=== PATIENT | male | born 1980 | race Caucasian/White ===

== ENCOUNTER 2018-07-27 19:56 | Emergency (ER) | payer BC ==
--- NOTE | 2018-07-27 20:02 | ER Report ---
History and Physical Time Seen By MD: 20:02 Hx. of Stated Complaint: pt was playing [employer], fell heard a pop in his right ankle. (RAISSA HURLEY) HPI/ROS CHIEF COMPLAINT: Right ankle pain HISTORY OF PRESENT ILLNESS: 38-year-old male patient presents to emergency room with complaint of right ankle pain. 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 Patient states is not able to bear weight. He states that his pain is very significant. He denies any numbness or tingling to the foot. He is able to wiggle his toes. Patient has not taken any medication for this. His states the patient did lose consciousness a couple of times in route to the hospital. Patient denies any head injury, nausea, vomiting. REVIEW OF SYSTEMS: Respiratory: No cough, no dyspnea. Cardiovascular: No chest pain, no palpitations. Gastrointestinal: No vomiting, no abdominal pain. Musculoskeletal: As noted above (RAISSA HURLEY) Allergies: Coded Allergies: No Known Drug Allergies (Unverified , 07/27/18) Home Meds Active Scripts Oxycodone Hcl/Acetaminophen (PERCOCET 5-325 MG TABLET) 1 Each Tablet, 1 EACH PO Q4-6H PRN for PAIN, #20 TAB Prov:RAISSA HURLEY 07/27/18 Past Medical/Surgical History Patient has a past medical history of asthma. Patient denies any surgical history. (RAISSA HURLEY) Reviewed Nurses Notes: Yes (RAISSA HURLEY) Hx Substance Use Disorder: No (RAISSA HURLEY) Constitutional Vital Sign - Last 24 Hours 07/27/18 07/27/18 07/27/18 07/27/18 19:57 19:58 20:00 20:11 Temp 97.7 Pulse 91 78 Resp 22 B/P (MAP) 87/55 (66) 87/59 102/67 (79) Pulse Ox 95 O2 Delivery Room Air 07/27/18 07/27/18 07/27/18 07/27/18 20:15 20:26 20:31 20:46 Pulse 73 73 73 Resp 8 B/P (MAP) 111/78 (89) Pulse Ox 96 96 97 9/207/27/18 07/27/18 07/27/18 21:01 21:16 21:31 21:33 Pulse 79 74 71 Resp 10 12 10 B/P (MAP) 100/70 (80) Pulse Ox 97 99 99 07/27/18 07/27/18 07/27/18 07/27/18 21:35 21:40 21:45 21:46 Pulse 77 Resp 12 B/P (MAP) 108/77 (87) 113/83 (93) 112/82 (92) Pulse Ox 98 07/27/18 07/27/18 07/27/18 07/27/18 21:50 21:55 22:00 22:01 Pulse 76 Resp 9 B/P (MAP) 125/83 (97) 115/75 (88) 122/90 (101) Pulse Ox 99 07/27/18 07/27/18 07/27/18 22:05 22:10 22:15 B/P (MAP) 126/89 (101) 125/80 (95) 117/82 (94) Intake and Output 07/27/18 07/27/18 07/28/18 14:59 22:59 06:59 Intake Total 1000 ml Balance 1000 ml (SOLA JACK DO) Physical Exam General Appearance: The patient is alert, has no immediate need for airway protection and no current signs of toxicity. Respiratory: Chest is non tender, lungs are clear to auscultation. Cardiac: regular rate and rhythm Gastrointestinal: Abdomen is soft and non tender, no masses, bowel sounds normal. Musculoskeletal: Neck: Neck is supple and non tender. Extremities have full range of motion and are non tender. The right foot is twisted to the right. Patient has good sensation, he is able to wiggle his toes, he has brisk capillary refill. Skin: No rashes or lesions. DIFFERENTIAL DIAGNOSIS: After history and physical exam differential diagnosis was considered for trimalleolar fracture, ankle dislocation, tib-fib fracture. (RAISSA HURLEY) Medical Decision Making EKG/Imaging Imaging 3 views right ankle INDICATION: Fracture. Reduction. COMPARISON: Images from earlier in the evening are reviewed. FINDINGS: 3 views of the right ankle are obtained. A fiberglass splint has been placed. Trimalleolar fracture pattern is again seen at the right ankle. Alignment is improved at all the fracture sites. There is now appropriate alignment at the tibiotalar joint with an intact mortise. Soft tissue swelling noted. There is a heel spur. IMPRESSION: 1. Trimalleolar fracture pattern at the right ankle with improved alignment at the fracture sites and with near anatomic alignment now seen at the tibiotalar joint. 2. Fiberglass splint. Report Dictated By: Maged Tucker at 07/27/2018 10:10 PM Report E-Signed By: Maged Tucker at 07/27/2018 10:12 PM Examination: Right tibia-fibula 2 views EXAMINATION: Right ankle 2 views HISTORY: Pain. Deformity. FINDINGS: 2 views of the right tibia-fibula and 2 views of the right ankle are obtained. There are acute fractures involving the distal portions of the tibia and the fibula. Specifically, there is a markedly comminuted distal fibular fracture with multiple fracture fragments which are displaced posteriorly and laterally. There is a transverse fracture through the medial malleolus at the level of the tibial plafond and there is a posterior malleolus fracture of the distal tibia. The posterior malleolus fracture is distracted posteriorly and superiorly. There is abnormal alignment at the tibiotalar joint. There is posterior subluxation of the talus with respect to the tibial plafond. Talus and tibial plafond appear somewhat impacted at the level of the posterior malleolus fracture. There is mild widening of the medial ankle mortise. Soft tissue swelling is present about the ankle. There is a small heel spur. There are Achilles insertional ossifications. IMPRESSION: 1. Comminuted trimalleolar fracture pattern about the right ankle with soft tissue edema. 2. Posterior subluxation of the talar dome with respect to the tibial plafond. Report Dictated By: Maged Tucker at 07/27/2018 10:05 PM Report E-Signed By: Maged Tucker at 07/27/2018 10:09 PM Examination: Right tibia-fibula 2 views EXAMINATION: Right ankle 2 views HISTORY: Pain. Deformity. FINDINGS: 2 views of the right tibia-fibula and 2 views of the right ankle are obtained. There are acute fractures involving the distal portions of the tibia and the fibula. Specifically, there is a markedly comminuted distal fibular fracture with multiple fracture fragments which are displaced posteriorly and laterally. There is a transverse fracture through the medial malleolus at the level of the tibial plafond and there is a posterior malleolus fracture of the distal tibia. The posterior malleolus fracture is distracted posteriorly and superiorly. There is abnormal alignment at the tibiotalar joint. There is posterior subluxation of the talus with respect to the tibial plafond. Talus and tibial plafond appear somewhat impacted at the level of the posterior malleolus fracture. There is mild widening of the medial ankle mortise. Soft tissue swelling is present about the ankle. There is a small heel spur. There are Achilles insertional ossifications. IMPRESSION: 1. Comminuted trimalleolar fracture pattern about the right ankle with soft tissue edema. 2. Posterior subluxation of the talar dome with respect to the tibial plafond. Report Dictated By: Maged Tucker at 07/27/2018 10:05 PM Report E-Signed By: Maged Tucker at 07/27/2018 10:09 PM (RAISSA HURLEY) ED Course/Re-evaluation ED Course Patient admitted to an exam room, history and physical were obtained. Differential diagnoses were considered. On examination patient has obvious deformity of the right ankle with the foot pointing lateral. And x-rays done of the right ankle and tib-fib. He does have a trimalleolar fracture. There are no other fractures of the tibia the fibula. The patient agreed to conscious sedation and was sedated while the ankle was reduced as described below. Patient tolerated procedure well. Repeat x-ray showed significant improvement in the alignment of the ankle. Patient states his pain is improved. We did hold the patient for an hour after his reduction. Patient was then discharged home. He was given crutches and informed to follow-up with [facility]. He states that he has had some interactions with Dr. Peterson and would like to follow-up with him. Patient was given information for [facility]. They're to call on Saturday to make an appointment. Patient and his verbalized understanding and agreement. We will give him a prescription of Percocet to help with pain in the meantime. Procedure: Dislocation reduction. The ankle was reduced in the usual fashion without complications. Post reduction the patient's neurovascular exam is normal. Post reduction x-ray demonstrates reduction of the joint to the anatomic position. The procedure was performed by myself. Procedure: Splint placement. A posterior and stirrup splint was applied. After application of the splint I returned and re-examined the patient. The splint was adequately immobilizing the joint and distal to the splint the patient's circulation and sensation was intact. Decision to Disposition Date: Jul 27, 2018 Decision to Disposition Time: 21:56 (RAISSA HURLEY) ED Course Procedure: Procedural sedation. A pre-sedation evaluation was completed on the patient at 2119. Patient is an appropriate candidate for procedural sedation. The risks of the sedation were discussed with the patient. A time out was completed at 2126. The patient was reevaluated immediately prior to initiation of sedation. The patient was sedated with propofol 150 mg IV. The patient was monitored with continuous pulse oximetry and potline monitor. There were no complications and no significant hyp oxemia. I remained at the bedside for the sedation. The total time I spent in the procedural sedation was 20 minutes. Post sedation evaluation: Patient was alert and cooperative, hemodynamically stable with appropriate respiratory status, temperature and pain control without ongoing nausea and vomiting. Decision to Disposition Date: Jul 27, 2018 Decision to Disposition Time: 22:35 (SOLA JACK DO) Depart Departure Latest Vital Signs Vital Signs Date Time Temp Pulse Resp B/P (MAP) Pulse Ox O2 Delivery O2 Flow Rate FiO2 07/27/18 22:15 117/82 (94) 07/27/18 22:01 76 9 99 07/27/18 19:58 97.7 Room Air (SOLA JACK DO) Impression: Primary Impression: Trimalleolar fracture of ankle, closed Condition: Improved Disposition: HOME OR SELF-CARE Referrals: SHERMAN OSBORNE MD New Scripts Oxycodone Hcl/Acetaminophen (PERCOCET 5-325 MG TABLET) 1 Each Tablet 1 EACH PO Q4-6H PRN for PAIN, #20 TAB Prov: RAISSA HURLEY 07/27/18 Patient Instructions: Ankle Fracture (ED) Additional Instructions: Limit activity by pain. Ice the ankle through the splint; 2-3 times a day for 20-30 minutes. If the splint is feeling too tight you may loosen the it[place] wrap and rewrap it. Follow up with [facility], call Saturday to make an appointment. Keep the splint dry, wrap it with a bag and tape to keep the water out. Return to the ER with uncontrollable pain or numbness to the foot. You may take Ibuprofen as needed for pain in addition to the pain medication. Don't take any additional Tylenol while on the pain medication. Problem Qualifiers Primary Impression: Trimalleolar fracture of ankle, closed Encounter type: initial encounter Laterality: right Qualified Codes: S82.851A - Displaced trimalleolar fracture of right lower leg, initial encounter for closed fracture RAISSA HURLEY Jul 27, 2018 20:02 SOLA JACK DO Jul 27, 2018 20:16
[2018-07-27] MEDS ORDERED: MORPHINE 4 MG/ML SDV IVP ONE ×2 (20:05→20:35)
[2018-07-27] MEDS ORDERED: PROPOFOL EMUL 10MG/ML 20 ML VL IVP ONE (20:05)
[2018-07-27] MEDS ORDERED: NS(*) 0.9% 1000 ML BAG 1,000 ML IV ONE (21:15)
[2018-07-27] MEDS ORDERED: OXYC-865 PO (21:46)
[2018-07-27] MEDS ORDERED: oxyCODONE/ACETAMIN 5/325MG TH 2 TAB/BOTTLE PO ONE (22:00)
--- NOTE | 2018-07-27 22:13 | RADIOLOGY IMAGING REPORT ---
[place] [facility] [place] NAME: Judd Mccarthy : 1980 MR: [id number] V: [id number] EXAM DATE: ORDERING PHYSICIAN: RAISSA HURLEY TECHNOLOGIST: Location: Patient: Judd Mccarthy : 1980 Visit/Account:[id number] Date of Sevice: 07/27/2018 ADDENDUM #1 Addendum: For clarification, a third image was obtained of the right ankle which has now been reviewed. The vesna ropriate title, therefore, should read: Right ankle minimum 3 views. Report Dictated By: Maged Tucker at 07/30/2018 2:49 AM Report E-Signed By: Maged Tucker at 07/30/2018 2:52 AM ORIGINAL REPORT Examination: Right tibia-fibula 2 views EXAMINATION: Right ankle 2 views HISTORY: Pain. Deformity. FINDINGS: 2 views of the right tibia-fibula and 2 views of the right ankle are obtained. There are acute fractures involving the distal portions of the tibia and the fibula. Specifically, th ere is a markedly comminuted distal fibular fracture with multiple fracture fragments which are displ aced posteriorly and laterally. There is a transverse fracture through the medial malleolus at the le cierra of the tibial plafond and there is a posterior malleolus fracture of the distal tibia. The production posting clerk ior malleolus fracture is distracted posteriorly and superiorly. There is abnormal alignment at the t ibiotalar joint. There is posterior subluxation of the talus with respect to the tibial plafond. Talu s and tibial plafond appear somewhat impacted at the level of the posterior malleolus fracture. There is mild widening of the medial ankle mortise. Soft tissue swelling is present about the ankle. There is a small heel spur. There are Achilles insertional ossifications. IMPRESSION: 1. Comminuted trimalleolar fracture pattern about the right ankle with soft tissue edema. 2. Posterior subluxation of the talar dome with respect to the tibial plafond. Report Dictated By: Maged Tucker at 07/27/2018 10:05 PM Report E-Signed By: Maged Tucker at 07/27/2018 10:09 PM WSN:[id number]
--- NOTE | 2018-07-27 22:14 | RADIOLOGY IMAGING REPORT ---
FACILITY: PATIENT NAME: Judd Mccarthy : 1980 MR: [id number] V: [id number] EXAM DATE: ORDERING PHYSICIAN: RAISSA HURLEY TECHNOLOGIST: Location: [facility] [place] Patient: Judd Mccarthy : 1980 Visit/Account:[id number] Date of Sevice: 07/27/2018 3 views right ankle INDICATION: Fracture. Reduction. COMPARISON: Images from earlier in the evening are reviewed. FINDINGS: 3 views of the right ankle are obtained. A fiberglass splint has been placed. Trimalleolar fracture p attern is again seen at the right ankle. Alignment is improved at all the fracture sites. There is no w appropriate alignment at the tibiotalar joint with an intact mortise. Soft tissue swelling noted. T here is a heel spur. IMPRESSION: 1. Trimalleolar fracture pattern at the right ankle with improved alignment at the fracture sites and with near anatomic alignment now seen at the tibiotalar joint. 2. Fiberglass splint. Report Dictated By: Maged Tucker at 07/27/2018 10:10 PM Report E-Signed By: Maged Tucker at 07/27/2018 10:12 PM WSN:[id number]
--- NOTE | 2018-07-27 22:14 | RADIOLOGY IMAGING REPORT ---
[place] [facility] [place] Judd Mccarthy : 1980 MR: [id number] V: [id number] EXAM DATE: ORDERING PHYSICIAN: RAISSA HURLEY TECHNOLOGIST: Location: [facility] [place] Patient: Judd Mccarthy : 1980 Visit/Account:[id number] Date of Sevice: 07/27/2018 ADDENDUM #1 Addendum: For clarification, a third image was obtained of the right ankle which has now been reviewed. The vesna ropriate title, therefore, should read: Right ankle minimum 3 views. Report Dictated By: Maged Tucker at 07/30/2018 2:49 AM Report E-Signed By: Maged Tucker at 07/30/2018 2:52 AM ORIGINAL REPORT Examination: Right tibia-fibula 2 views EXAMINATION: Right ankle 2 views HISTORY: Pain. Deformity. FINDINGS: 2 views of the right tibia-fibula and 2 views of the right ankle are obtained. There are acute fractures involving the distal portions of the tibia and the fibula. Specifically, th ere is a markedly comminuted distal fibular fracture with multiple fracture fragments which are displ aced posteriorly and laterally. There is a transverse fracture through the medial malleolus at the le cierra of the tibial plafond and there is a posterior malleolus fracture of the distal tibia. The records management manager ior malleolus fracture is distracted posteriorly and superiorly. There is abnormal alignment at the t ibiotalar joint. There is posterior subluxation of the talus with respect to the tibial plafond. Talu s and tibial plafond appear somewhat impacted at the level of the posterior malleolus fracture. There is mild widening of the medial ankle mortise. Soft tissue swelling is present about the ankle. There is a small heel spur. There are Achilles insertional ossifications. IMPRESSION: 1. Comminuted trimalleolar fracture pattern about the right ankle with soft tissue edema. 2. Posterior subluxation of the talar dome with respect to the tibial plafond. Report Dictated By: Maged Tucker at 07/27/2018 10:05 PM Report E-Signed By: Maged Tucker at 07/27/2018 10:09 PM WSN:[id number]
[2018-07-27 22:15] VITALS: BP 117/82
== END 2018-07-27 22:59 | disposition home or self-care (01) ==
LOC: ER 20:07
DX: S82.851A Displaced trimalleolar fracture of right lower leg, initial encounter for closed fracture (principal)
CPT/HCPCS: 27818; 73590; 73610; 96361; 96374; 99156; 99285; J2270; J2704; J7030; 96375; 96376; 99152; 99284

== ENCOUNTER → 2018-10-31 | Outpatient (CLI) | payer BC ==
[~2018-10-31] MED LIST: OXYC-865 PO
--- NOTE | 2018-10-31 14:09 | RADIOLOGY IMAGING REPORT ---
FACILITY: [facility] PATIENT NAME: Judd Mccarthy : 1980 MR: [id number] V: [id number] EXAM DATE: ORDERING PHYSICIAN: EDGAR ALVARADO TECHNOLOGIST: Location: [facility] Patient: Judd Mccarthy : 1980 Visit/Account:[id number] Date of Sevice: 10/31/2018 Exam type: KUB SINGLE VIEW ABDOMEN History: Patient diary in the past 2-3 weeks, bloody stools, unintentional weight loss Comparison: None. Findings: There is a nonspecific bowel gas pattern. There is no evidence of organomegaly or pathologic intrade rmal calcifications. Surgical clips project over the pelvis. IMPRESSION: 1. Nonspecific bowel gas pattern Report Dictated By: Lakeshia Garay MD at 10/31/2018 2:02 PM Report E-Signed By: Lakeshia Garay MD at 10/31/2018 2:05 PM WSN:[id number]
== END ==
LOC: RAD 13:00
PROVIDERS: ATTEND Family Medicine
DX: R19.4 Change in bowel habit (principal)
CPT/HCPCS: 74018

== ENCOUNTER → 2018-10-31 | Outpatient (REF) | payer BC | LOC: ZZSENDIN 11:57 | PROVIDERS: ATTEND Family Medicine | DX: K92.2 Gastrointestinal hemorrhage, unspecified (principal) | CPT/HCPCS: 82040; 82247; 82310; 82374; 82435; 82565; 82947; 84075; 84132; 84155; 84295; 84450; 84460; 84520 ==

== ENCOUNTER 2018-11-07 19:36 | Emergency (ER) | payer BC ==
--- NOTE | 2018-11-07 19:54 | ER Report ---
History and Physical Time Seen By MD: 19:48 Hx. of Stated Complaint: patient developed small spot on right lower calf got bigger and red and opend up, patient states "I had a bandaid on with Antibiotic ointment for last 4 days" HPI/ROS CHIEF COMPLAINT: Open wound HISTORY OF PRESENT ILLNESS: This is a 38-year-old male who presents to the emergency department for a wound on his right lower extremity. Patient states that he's had a red spots on his right lateral calf for roughly 4 days, has had a Band-Aid with antibiotic ointment over the red spot. Patient states then today when he was pulling his Band-Aid off there was a large open wound, he became concerned and decided to come in for further evaluation. No fevers or chills. No nausea or vomiting. No history of diabetes. He did have right ankle surgery in July. No other complaints at this time. REVIEW OF SYSTEMS: Respiratory: No cough, no dyspnea. Cardiovascular: No chest pain, no palpitations. Gastrointestinal: No vomiting, no abdominal pain. Musculoskeletal: As above. Integumentary: As above. Allergies: Coded Allergies: No Known Drug Allergies (Unverified , 07/27/18) Home Meds Active Scripts Sulfamethoxazole/Trimet 800-160 Mg Tab (BACTRIM DS TABLET) 1 Each Tablet, 1 TAB PO Q12H, #20 TAB Prov:JASWANT FUNES TRAINING ENGINEER- 11/07/18 Discontinued Scripts Oxycodone Hcl/Acetaminophen (PERCOCET 5-325 MG TABLET) 1 Each Tablet, 1 EACH PO Q4-6H PRN for PAIN, #20 TAB Prov:RAISSA HURLEY TRAINING ENGINEER 07/27/18 Past Medical/Surgical History The patient has a past medical and surgical history of asthma, hernia repair, wears glasses, dry skin, right ankle surgery. Reviewed Nurses Notes: Yes Hx Substance Use Disorder: No Constitutional Vital Sign - Last 24 Hours 11/07/18 11/07/18 11/07/18 11/07/18 19:42 20:05 20:10 20:15 Temp 97.9 Pulse 127 113 115 122 Resp 20 B/P (MAP) 122/84 Pulse Ox 91 89 89 88 O2 Delivery Room Air 11/07/18 11/07/18 11/07/18 11/07/18 20:20 20:25 20:40 20:45 Pulse 112 111 113 109 Pulse Ox 90 90 90 89 11/07/18 11/07/18 11/07/18 11/07/18 20:50 20:55 21:05 21:10 Pulse 109 106 107 106 B/P (MAP) 118/74 (89) Pulse Ox 91 92 91 89 O2 Delivery Room Air 11/07/18 21:20 Pulse 103 Pulse Ox 91 Physical Exam General Appearance: The patient is alert, has no immediate need for airway protection and no current signs of toxicity. Eyes: Pupils equal and round no injection. Respiratory: Chest is non tender, lungs are clear to auscultation. Cardiac: regular rate and rhythm, no murmurs, clicks or rubs. Gastrointestinal: Abdomen is soft and non tender, no masses, bowel sounds normal. Musculoskeletal: Neck: Neck is supple and non tender. Extremities have full range of motion and are non tender. Skin: A dime sized open wound to the right lateral lower extremity. The wound was roughly 1/4 cm deep. Small amount of purulent drainage. No bleeding. Mild erythema surrounding the tissue. No other lesions or wounds. No fluctuance or other abscessed areas. DIFFERENTIAL DIAGNOSIS: After history and physical exam differential diagnosis was considered for abscess, allergic reaction, osteomyelitis and necrotizing fasciitis. Medical Decision Making Data Points Result Diagram: 11/07/18 1950 11/07/181949 Laboratory Hematology Test 11/07/18 19:50 Red Blood Count 4.92 M/uL (4.00-5.60) Mean Corpuscular Volume 82.9 fL (80.0-96.0) Mean Corpuscular Hemoglobin 27.9 pg (26.0-33.0) Mean Corpuscular Hemoglobin Concent 33.7 g/dL (32.0-36.0) Red Cell Distribution Width 13.6 % (11.5-14.5) Mean Platelet Volume 8.4 fL (7.2-11.1) Neutrophils (%) (Auto) 60.7 % (39.4-72.5) Lymphocytes (%) (Auto) 21.9 % (17.6-49.6) Monocytes (%) (Auto) 9.1 % (4.1-12.4) Eosinophils (%) (Auto) 7.9 % (0.4-6.7) Basophils (%) (Auto) 0.4 % (0.3-1.4) Nucleated RBC Relative Count (auto) 0.1 /100WBC Neutrophils # (Auto) 8.8 K/uL (2.0-7.4) Lymphocytes # (Auto) 3.2 K/uL (1.3-3.6) Monocytes # (Auto) 1.3 K/uL (0.3-1.0) Eosinophils # (Auto) 1.1 K/uL (0.0-0.5) Basophils # (Auto) 0.1 K/uL (0.0-0.1) Nucleated RBC Absolute Count (auto) 0.01 K/uL Sodium Level 135 mmol/L (137-145) Potassium Level 3.4 mmol/L (3.5-5.0) Chloride Level 99 mmol/L (98-107) Carbon Dioxide Level 28 mmol/L (22-30) Blood Urea Nitrogen 6 mg/dl (9-21) Creatinine 0.80 mg/dl (0.66-1.25) Glomerular Filtration Rate Calc > 60.0 Random Glucose 160 mg/dl (75-110) Calcium Level 8.4 mg/dl (8.4-10.2) Chemistry Test 11/07/18 19:50 White Blood Count 14.5 k/uL (4.5-11.0) Red Blood Count 4.92 M/uL (4.00-5.60) Hemoglobin 13.7 g/dL (14.0-18.0) Hematocrit 40.8 % (42.0-52.0) Mean Corpuscular Volume 82.9 fL (80.0-96.0) Mean Corpuscular Hemoglobin 27.9 pg (26.0-33.0) Mean Corpuscular Hemoglobin Concent 33.7 g/dL (32.0-36.0) Red Cell Distribution Width 13.6 % (11.5-14.5) Platelet Count 457 K/uL (150-450) Mean Platelet Volume 8.4 fL (7.2-11.1) Neutrophils (%) (Auto) 60.7 % (39.4-72.5) Lymphocytes (%) (Auto) 21.9 % (17.6-49.6) Monocytes (%) (Auto) 9.1 % (4.1-12.4) Eosinophils (%) (Auto) 7.9 % (0.4-6.7) Basophils (%) (Auto) 0.4 % (0.3-1.4) Nucleated RBC Relative Count (auto) 0.1 /100WBC Neutrophils # (Auto) 8.8 K/uL (2.0-7.4) Lymphocytes # (Auto) 3.2 K/uL (1.3-3.6) Monocytes # (Auto) 1.3 K/uL (0.3-1.0) Eosinophils # (Auto) 1.1 K/uL (0.0-0.5) Basophils # (Auto) 0.1 K/uL (0.0-0.1) Nucleated RBC Absolute Count (auto) 0.01 K/uL Glomerular Filtration Rate Calc > 60.0 Calcium Level 8.4 mg/dl (8.4-10.2) EKG/Imaging Imaging EXAMINATION: Right tibia and fibula 2 views. HISTORY: Deep wound lateral calf, query osteomyelitis COMPARISON: 07/27/2018. FINDINGS: New surgical changes at the right ankle. There is lateral plate and screw fixation traversing a prior comminuted fracture of the distal fibula. Persiste nt fracture line visualized proximally on the lateral view. There is additional medial plate and screw fixation traversing a prior fracture along the medial malleolus, without any definite well-defined residual fracture line. Normal alignment at the right ankle. No other acute osseous findings along the right lower leg. Normal mineralization. No specific radiographic evidence of osteomyelitis. Soft tissue swelling along the right lower leg. No radiopaque foreign body or soft tissue gas. IMPRESSION: 1. Interval surgical changes of ORIF for prior fractures of the distal fibula and medial malleolus. Hardware appears intact. 2. No acute osseous findings along the right lower leg. No specific radiographic evidence of osteomyelitis. 3. Soft tissue swelling along the lower leg. No soft tissue gas or radiopaque foreign body. Report Dictated By: Emiliano Pringle MD at 11/07/2018 8:47 PM Report E-Signed By: Emiliano Pringle MD at 11/07/2018 8:51 PM WSN:[id number] ED Course/Re-evaluation Clinical Indication for ER IV: IV Access ED Course The patient was admitted to a room. A history and physical were obtained. Differential diagnoses were considered. An IV was started. A CBC, BMP and x-ray were obtained. CBC showing white count of 14.5, H&H 13.7 and 40.8, platelets 457, sodium 135, potassium 3.4, blood sugar 160, patient did eat just prior to coming to the emergency department. An x-ray of the right lower extremity was negative for any acute findings. I reviewed the results with the patient. He was also given 1 g of Rocephin IV. Patient was sent home with prescription for Bactrim. I recommended warm compresses. The patient will return tomorrow afternoon for reevaluation. A specimen of the wound was collected and sent to the lab. I did feel that the rapid onset of the wound in addition to the proximity of the ankle hardware were intact aggressive treatment. The patient was in agreement with this, the patient was discharged home. Decision to Disposition Date: Nov 07, 2018 Decision to Disposition Time: 21:28 Depart Departure Latest Vital Signs Vital Signs Date Time Temp Pulse Resp B/P (MAP) Pulse Ox O2 Delivery O2 Flow Rate FiO2 11/07/18 21:20 103 91 11/07/18 21:10 118/74 (89) Room Air 11/07/18 19:42 97.9 20 Impression: Primary Impression: Cellulitis of right lower extremity Additional Impression: Abscess of right lower extremity Condition: Improved Disposition: HOME OR SELF-CARE New Scripts Sulfamethoxazole/Trimet 800-160 Mg Tab (BACTRIM DS TABLET) 1 Each Tablet 1 TAB PO Q12H, #20 TAB Prov: JASWANT FUNES 11/07/18 Patient Instructions: Abscess (ED), Cellulitis (ED) Additional Instructions: You do have an abscess and cellulitic infection to your leg. Please keep the wound covered and clean. You can apply a moist compress to the wound every 4 hours to help the wound drain. Please return tomorrow evening so I can reevaluate the wound. Start your antibiotics tomorrow. Drink plenty of water. Get plenty of rest. Return to the ED for any other concerns or worsening symptoms. Problem Qualifiers JASWANT FUNES Nov 07, 2018 19:54
[2018-11-07 20:20] LABS: PLATELET COUNT, AUTOMATED 457 K/uL (150-450)
--- NOTE | 2018-11-07 20:54 | RADIOLOGY IMAGING REPORT ---
[place] [facility] [place] Judd Mccarthy : 1980 MR: [id number] V: [id number] EXAM DATE: ORDERING PHYSICIAN: JASWANT FUNES TECHNOLOGIST: Location: [facility] [place] Patient: Judd Mccarthy : 1980 Visit/Account:[id number] Date of Sevice: 11/07/2018 EXAMINATION: Right tibia and fibula 2 views. HISTORY: Deep wound lateral calf, query osteomyelitis COMPARISON: 07/27/2018. FINDINGS: New surgical changes at the right ankle. There is lateral plate and screw fixation traversing a prio r comminuted fracture of the distal fibula. Persistent fracture line visualized proximally on the la teral view. There is additional medial plate and screw fixation traversing a prior fracture along th e medial malleolus, without any definite well-defined residual fracture line. Normal alignment at th e right ankle. No other acute osseous findings along the right lower leg. Normal mineralization. No specific radio graphic evidence of osteomyelitis. Soft tissue swelling along the right lower leg. No radiopaque foreign body or soft tissue gas. IMPRESSION: 1. Interval surgical changes of ORIF for prior fractures of the distal fibula and medial malleolus. Hardware appears intact. 2. No acute osseous findings along the right lower leg. No specific radiographic evidence of osteom yelitis. 3. Soft tissue swelling along the lower leg. No soft tissue gas or radiopaque foreign body. Report Dictated By: Emiliano Pringle MD at 11/07/2018 8:47 PM Report E-Signed By: Emiliano Pringle MD at 11/07/2018 8:51 PM WSN:[email or web address]
[2018-11-07] MEDS ORDERED: cefTRIAXone 1 GM VIAL IVP ONE (21:00)
[2018-11-07 21:10] VITALS: BP 118/74
[2018-11-07] MEDS ORDERED: SULF-198 PO (21:12)
== END 2018-11-07 21:36 | disposition home or self-care (01) ==
LOC: ER 19:46
DX: L03.115 Cellulitis of right lower limb (principal); L02.415 Cutaneous abscess of right lower limb; B95.61 Methicillin susceptible Staphylococcus aureus infection as the cause of diseases classified elsewhere
CPT/HCPCS: 73590; 85025; 87070; 96374; 99283; J0696; 82310; 82374; 82435; 82565; 82947; 84132; 84295; 84520; 87077; 87186

== ENCOUNTER → 2018-12-15 | Outpatient (REF) | payer BC ==
[~2018-12-15] MED LIST changes: +SULF-198 PO
== END ==
LOC: ZZSENDIN 09:44
PROVIDERS: ATTEND Family Medicine
DX: K92.2 Gastrointestinal hemorrhage, unspecified (principal)
CPT/HCPCS: 82274; 83630; 83993; 87045; 87177; 87324; 87449

== ENCOUNTER → 2018-12-19 | Outpatient (REF) | payer BC | LOC: ZZSENDIN 08:55 | PROVIDERS: ATTEND Family Medicine | DX: R10.817 Generalized abdominal tenderness (principal) | CPT/HCPCS: 86140 ==

== ENCOUNTER → 2019-03-03 | Outpatient (CLI) | payer BC ==
[2019-03-03 14:09] LABS: PLATELET COUNT, AUTOMATED 379 K/uL (150-450)
== END ==
LOC: LAB 13:43
PROVIDERS: ATTEND Internal Medicine Gastroenterology
DX: K51.00 Ulcerative (chronic) pancolitis without complications (principal)
CPT/HCPCS: 36415; 82040; 82247; 82310; 82374; 82435; 82565; 82947; 84075; 84132; 84155; 84295; 84450; 84460; 84520; 85025; 86480; 87340

== ENCOUNTER 2019-04-29 08:19 | Outpatient (RCR) | payer BC ==
[2019-04-14] VITALS (7 sets, daily range): BP systolic 102–128; BP diastolic 66–73
[2019-04-14] MEDS: LIDOCAINE/SOD BICARB 8.4% SYR ID PRN (09:07)
[2019-04-14] MEDS: NS(*) 0.9% 100 ML BAG 100 ML IVPB PRN (09:07)
[2019-04-14 09:09] LABS: PLATELET COUNT, AUTOMATED 384 K/uL (150-450)
[2019-04-14] MEDS: ACETAMINOPHEN 325 MG TAB PO PRN (09:59)
[2019-04-14] MEDS: diphenhydrAMINE 50 MG/ML VIAL IVP PRN (10:00)
[~2019-04-29 08:19] MED LIST changes: +DEXTROSE 5%(*) 100 ML BAG 100 ML IVPB PRN; +PRED-420 PO; +inFLIXimab 100 MG VIAL 500 MG in NS(*) 0.9% 250 ML BAG 250 ML IVPB ONE
[2019-04-29 08:24] VITALS: BP 120/81
[2019-04-29] MEDS: LIDOCAINE/SOD BICARB 8.4% SYR ID PRN (08:46)
[2019-04-29] MEDS: NS(*) 0.9% 100 ML BAG 100 ML IVPB PRN (08:46)
[2019-04-29 08:48] LABS: PLATELET COUNT, AUTOMATED 407 K/uL (150-450)
[2019-04-29] MEDS: ACETAMINOPHEN 325 MG TAB PO PRN (09:29)
[2019-04-29] MEDS: diphenhydrAMINE 50 MG/ML VIAL IVP PRN (09:30)
[2019-04-29] MEDS ORDERED: inFLIXimab 100 MG VIAL 500 MG in NS(*) 0.9% 250 ML BAG 250 ML IVPB ONE (10:00)
[2019-04-29 10:20] VITALS: BP 106/68
[2019-04-29 11:42] VITALS: BP 103/74
== END 2019-05-25 13:02 | disposition home or self-care (01) ==
LOC: SPU 08:19
PROVIDERS: ATTEND Internal Medicine Gastroenterology
DX: K51.90 Ulcerative colitis, unspecified, without complications (principal)
CPT/HCPCS: 85025; 86140; 96375; 96413; 96415; J1200; J1745; J7050; 82040; 82247; 82310; 82374; 82435; 82565; 82947; 84075; 84132; 84155; 84295; 84450; 84460; 84520